=== PATIENT | male | born 1975 | race Caucasian/White ===

== ENCOUNTER 2022-01-19 20:34 | Observation (INO) | payer MEDICAID, SELFPAY ==
[2022-01-19 20:48] VITALS: BP 115/44; PULSE 69; RESP 17; TEMP 36.7; O2SAT 100; BMI 25.0
--- NOTE | 2022-01-19 20:56 | CT_ITS ---
PROCEDURE INFORMATION: Exam: CT Abdomen And Pelvis Without Contrast Exam date and time: 01/19/2022 9:21 PM Age: 46 years old Clinical indication: Abdominal pain; Localized; Left lower quadrant (llq); Additional info: Inguinal hernia pain left low quad. Visable buldge in skin at the site TECHNIQUE: Imaging protocol: Computed tomography of the abdomen and pelvis without contrast. Radiation optimization: All CT scans at this facility use at least one of these dose optimization techniques: automated exposure control; mA and/or kV adjustment per patient size (includes targeted exams where dose is matched to clinical indication); or iterative reconstruction. COMPARISON: No relevant prior studies available. FINDINGS: Liver: Normal. No mass. Gallbladder and bile ducts: Normal. No calcified stones. No ductal dilation. Pancreas: Normal. No ductal dilation. Spleen: Normal. No splenomegaly. Adrenal glands: Normal. No mass. Kidneys and ureters: Nonobstructing right renal calculus. Stomach and bowel: Unremarkable. No obstruction. No mucosal thickening. Appendix: Unremarkable appendix. Intraperitoneal space: Unremarkable. No free air. No significant fluid collection. Vasculature: The arteries demonstrate mild atherosclerotic disease. Lymph nodes: Unremarkable. No enlarged lymph nodes. Urinary bladder: Unremarkable as visualized. Reproductive: Unremarkable as visualized. Bones/joints: Unremarkable. No acute fracture. Soft tissues: Dilated segments of small bowel filled with fluid with a transition point at an incarcerated left inguinal hernia. Left inguinal hernia containing a short segment of small bowel. There is moderate edema associated with this. IMPRESSION: 1. Incarcerated left inguinal hernia causing small bowel obstruction. 2. Nonobstructing right renal calculus.
[2022-01-19 21:11] LABS: Microscopic, Urine URINE MICROSCOPIC (MICROSCOPIC)
[2022-01-19 21:20] LABS: Appearance,Urine CLEAR (Clear); Blood, Urine TRACE-I (Negative); Color,Urine YELLOW (Yellow); Glucose,Urine (UA) Negative (Negative); Ketones,Urine 1+ (Negative); Leukocyte Esterase,Urine Negative (Negative); Nitrate,Urine Negative (Negative); Protein,Urine 1+ (Negative); Specific Gravity, Urine >= 1.030 (1.005-1.030)
[2022-01-19 21:25] LABS: Bilirubin,Urine Negative (Negative)
[2022-01-19 21:26] LABS: Amorphous Sediment,Urine Trace /lpf; Mucus,Urine 1+ /lpf
--- NOTE | 2022-01-19 21:34 | PC.NURSE ---
Pt has been a difficult stick for IV cath or labs. 3 RN's have tried 7x all together without success. Pt refusing additional sticks at this time. aware.
--- NOTE | 2022-01-19 21:38 | PC.NURSE ---
Lab at bedside, will attempt direct stick for labs.
[2022-01-19 21:53] LABS: Basophils # 0.1 K/mm3 (0-0.2); Basophils % 0.4 % (0.1-2.0); Eosinophils # 0.2 K/mm3 (0.0-0.4); Eosinophils % 1.8 % (0.1-12.0); Hematocrit 42.5 % (42.0-52.0); Hemoglobin 13.7 g/dL (14.1-18.0); Lymphocytes # 1.9 K/mm3 (0.7-4.5); Lymphocytes % 15.1 % (10-50); Mean Corpuscular HGB Conc 32.1 g/dL (31.8-35.4); Mean Corpuscular Hemoglobin 30.6 pg (27.0-31.2); Mean Corpuscular Volume 95.3 fl (80-94); Mean Platelet Volume 7.4 fl (7.4-10.4); Monocytes # 0.7 K/mm3 (0.1-1.0); Monocytes % 5.3 % (1.7-9.3); Neutrophils # 9.7 K/mm3 (1.8-7.8); Neutrophils % 77.4 % (37.0-80.0); Platelet Count 433 K/mm3 (142-424); Red Blood Count 4.46 M/mm3 (4.60-6.20); Red Cell Distribution Width 14.8 % (11.5-17.5); White Blood Count 12.5 K/mm3 (4.8-10.8)
--- NOTE | 2022-01-19 21:56 | PC.NURSE ---
AWARE OF CT RESULTS.
--- NOTE | 2022-01-19 21:56 | PC.NURSE ---
Rounded on pt. Pt voiced no needs or complaints at this time.
[2022-01-19 21:57] VITALS: BP 140/92; PULSE 68; O2SAT 99
--- NOTE | 2022-01-19 21:59 | HMH.EDGENADL ---
Discharge Plan Disposition Patient Disposition: Admitted As Inpatient Chief Complaint: PAIN Clinical Impressions Clinical Impression: Incarcerated left inguinal hernia, Small bowel obstruction Discharge ED Provider: Bro Graf General Adult HPI General Chief complaint: PAIN Stated complaint: AO 01/18@1400 injured his kwame Time Seen by Provider: 01/19/22 21:59 Mode of Arrival: Wheelchair Source of Information: Patient, Significant Other and Medical Record Limitations: No Limitations Description of Symptoms (Recalled from ER Triage Doc. by RN): PT STATES HE HAS PAIN IN HIS LEFT GROIN THAT BEGAN TODAY AROUND 1600 AND HAS NOT RESOLVED. History of Present Illness HPI narrative: acute lt groin pain today which has progressed with nausea Onset (ago): hour(s) Location: abdomen Severity: severe Quality: sharp Consistency: constant Associated symptoms: denies other symptoms Treatments prior to arrival: none Related Data Home Medications Medication Instructions Recorded Confirmed No Known Home Medications 01/19/22 01/19/22 Allergies Allergy/AdvReac Type Severity Reaction Status Date / Time No Known Allergies Allergy Verified 01/19/22 20:54 PFSH PFSH Social History Smoking Status: Current every day smoker tobacco type: cigarettes packs per day: 1 alcohol intake: current substance use type: amphetamines current occupational status: employed Travel in the last 8 weeks: None caffeine: Yes ROS Obtained: Yes All systems reviewed & no additional complaints except as documented Constitutional Constitutional: Denies fever(s) Eyes Eyes: Denies loss of vision ENT Ears, Nose, Mouth, and Throat: Denies facial pain Cardiovascular Cardiovascular: Denies chest pain with activity Respiratory Respiratory: Denies shortness of breath Gastrointestinal Gastrointestingal: Reports as per HPI and abdominal pain Genitourinary Male Genitourinary: Denies hematuria and Denies scrotal swelling Musculoskeletal Musculoskeletal: Denies back pain Integumentary/Breasts Skin/Breast: Denies rash Neurologic Neurologic: Denies loss of vision Physical Exam General General appearance: alert Head Head exam: normocephalic Eye Eye exam: Present PERRL and EOMI ENT ENT exam: Present mucous membranes dry Neck Neck exam: Present trachea midline Respiratory Respiratory exam: Absent respiratory distress Cardiovascular Cardiovascular exam: Present regular rate; Absent systolic murmur Abdominal Exam Abdominal exam: Present soft exam: Present circumcised; Absent scrotal swelling Expanded Exam exam: Present inguinal hernia Extremities Exam Extremities exam: Present full ROM Neurological Exam Neurological exam: Present alert, oriented X3 and CN II-XII intact Psychiatric Psychiatric exam: Present normal affect Skin Skin exam: Present intact Medical Decision Making Medical Records Medical records reviewed: Yes I reviewed the patient's medical records. Mj Inquiry Pt receiving controlled substance: No Vital Signs: 01/19/22 20:48 01/19/22 21:57 01/19/22 23:17 Temperature 98.1 F Temperature Source Oral Pulse Rate 68 Pulse Rate [Left Radial] 69 Respiratory Rate 17 Blood Pressure 140/92 H Blood Pressure [Left Arm] 115/44 L Blood Pressure Mean [Left Arm] 67 Blood Pressure Source [Left Arm] Automatic Cuff Blood Pressure Position Blood Pressure Position [Left Arm] Sitting 02 Sat by Pulse Oximetry 100 99 Oxygen Delivery Method Room Air Room Air Room Air 01/19/22 23:17 Temperature 97.9 F Temperature Source Oral Pulse Rate 88 Pulse Rate [Left Radial] Respiratory Rate 16 Blood Pressure 97/82 L Blood Pressure [Left Arm] Blood Pressure Mean [Left Arm] Blood Pressure Source [Left Arm] Blood Pressure Position Sitting Blood Pressure Position [Left Arm] 02 Sat by Pulse Oximetry Oxygen Delivery Method Room Air
--- NOTE | 2022-01-19 21:59 | PC.NURSE ---
Dr. Graf s/w IRVINGAD
--- NOTE | 2022-01-19 22:00 | PC.NURSE ---
Dr. Hernandez paged
[2022-01-19 22:01] LABS: Alanine Aminotransferase 50 U/L (12-78); Albumin Level 4.5 g/dl (3.5-5.0); Albumin Level 4.6 g/dl (3.5-5.0); Albumin/Globulin Ratio 1.5 (1.1-1.8); Alkaline Phosphatase 97 U/L (38-126); Anion Gap 12.7 mEq/L (5-15); Aspartate Amino Transferase 57 U/L (17-59); Aspartate Amino Transferase 58 U/L (17-59); Bilirubin,Direct 0.5 mg/dl (0.0-0.4); Bilirubin,Indirect 1.6 mg/dL (0.0-0.9); Bilirubin,Total 2.1 mg/dl (0.2-1.3); Bilirubin,Total 2.2 mg/dl (0.2-1.3); Bilirubin,Unconjugated 1.6 mg/dL (0.0-1.1); Blood Urea Nitrogen 23 mg/dl (9-20); Calcium 9.5 mg/dl (8.4-10.2); Carbon Dioxide 25 mmol/L (22.0-30.0); Chloride 107 mmol/L (98-107); Creatinine Clearance Estimated 64 mL/min (50-200); Estimated Glomerular Filt Rate 55 ml/min (>60); GFR (African American) 66 ML/MIN (>60); Globulin 3.1 g/dL (1.3-3.2); Glucose 106 mg/dl (74-100); Potassium 4.7 mmoL/L (3.5-5.1); Sodium 140 mmol/L (136-145); Total Protein,Serum 7.6 g/dl (6.3-8.2); Total Protein,Serum 7.7 g/dl (6.3-8.2)
[2022-01-19 22:02] LABS: Lactic Acid 0.7 mmol/L (0.7-2.1)
--- NOTE | 2022-01-19 22:02 | PC.NURSE ---
speaking with Dr. Hernandez
[2022-01-19 22:06] LABS: C-Reactive Protein 4.4 mg/L (0-4)
--- NOTE | 2022-01-19 22:06 | PC.NURSE ---
COVID SWAB COLLECTED AND SENT TO LAB. PT AWARE THAT MD WILL BE PRESENT TO DISCUSS CT RESULTS. FAMILY AT BEDSIDE.
[2022-01-19 22:09] LABS: Coronavirus 19, PCR Not Detected (NotDetected); Influenza A, PCR Not Detected (NotDetected); Influenza B, PCR Not Detected (NotDetected)
--- NOTE | 2022-01-19 22:13 | PC.NURSE ---
Dr. Hernandez at BS
[2022-01-19 22:16] LABS: Erythrocyte Sedimentation Rate 14 mm/hr (0-15)
--- NOTE | 2022-01-19 22:20 | PC.NURSE ---
DR MALAVE AT BEDSIDE TO ATTEMPT INGUINAL HERNIA REDUCTION. FAMILY REMAINS AT BEDSIDE.
--- NOTE | 2022-01-19 22:42 | P.PN_ITS ---
[facility] Social History Smoking Status: Current every day smoker tobacco type: cigarettes packs per day: 1 alcohol intake: current substance use type: amphetamines current occupational status: employed Travel in the last 8 weeks: None caffeine: Yes [facility] Anesthesia Checklist Patient Identification Patient Identification: Arm Band and Verbal (Name & ) Structural Data Admitted From: Emergency Dept Planned Operative Procedure/s: Hernia repair Consent for Planned Operative Procedure(s) Verified: Yes NPO Status Verified Time NPO: 00:00 Airway Assessment C-Spine Mobility Assessed: Yes TMJ Mobility Assessed: Yes Dentition: Edentulous Neurological Assessment Level of Consciousness: Awake Hx Seizures: No Numbness or tingling in extremities: No Anesthesia Plan Anesthesia Risk discussed: Yes Anesthesia Plan: Verified ASA Class: II (II E) Anesthesia Type: General
--- NOTE | 2022-01-19 22:44 | EXP.GEN.HP ---
HPI HPI HPI: This is a 46-year-old gentleman who presented to the emergency department with increasing left groin pain. He had physical exam findings of incarcerated inguinal hernia later confirmed radiographically. Multiple attempts at reduction have been unsuccessful. [facility] Social History Smoking Status: Current every day smoker tobacco type: cigarettes packs per day: 1 alcohol intake: current substance use type: amphetamines current occupational status: employed Travel in the last 8 weeks: None caffeine: Yes Review of Systems Constitutional Constitutional: Denies anorexia Eyes Eyes: Reports system reviewed and no additional complaints, except as documented ENT Ears, Nose, Mouth, and Throat: Reports system reviewed and no additional complaints, except as documented *Cardiovascular Cardiovascular: Reports system reviewed and no additional complaints, except as documented *Respiratory Respiratory: Reports system reviewed and no additional complaints, except as documented *Gastrointestinal Gastrointestinal: Reports abdominal pain *Genitourinary Genitourinary: Reports system reviewed and no additional complaints, except as documented *Musculoskeletal Musculoskeletal: Reports system reviewed and no additional complaints, except as documented Integumentary/Breasts Skin/Breast: Reports system reviewed and no additional complaints, except as documented *Neurologic Neurologic: Reports system reviewed and no additional complaints, except as documented Psychiatric Psychiatric: Reports system reviewed and no additional complaints, except as documented Endocrine Endocrine: Reports system reviewed and no additional complaints, except as documented Hematologic/Lymphatic Hematologic/Lymphatic: Reports system reviewed and no additional complaints, except as documented Allergic/Immunologic Allergic/Immunologic: Reports system reviewed and no additional complaints, except as documented Meds Home Medications and Allergies Home Medications Medication Instructions Recorded Confirmed Type No Known Home Medications 01/19/22 01/19/22 History New Prescriptions to Start Prescriptions: Allergies Allergy/AdvReac Type Severity Reaction Status Date / Time No Known Allergies Allergy Verified 01/19/22 20:54 Exam Data for Last 24 hours Vital signs and Labs for Last 24 Hours: Temp Pulse Resp BP Pulse Ox 98.1 F 68 17 140/92 H 99 01/19/22 20:48 01/19/22 21:57 01/19/22 20:48 01/19/22 21:57 01/19/22 21:57 Laboratory Results - last 24 hr 01/19/22 21:01: Urine Color Yellow, Urine Appearance Clear, Urine pH 6.0, Ur Specific [place] >= 1.030, Urine Protein 1+, Urine Glucose (UA) Negative, Urine Ketones 1+, Urine Blood Trace-i, Urine Nitrate Negative, Urine Bilirubin Negative, Urine Urobilinogen 1.0, Ur Leukocyte Esterase Negative, Urine WBC 3-5, Amorphous Sediment Trace, Urine Mucus 1+ 01/19/22 21:42: WBC 12.5 H, RBC 4.46 L, Hgb 13.7 L, Hct 42.5, MCV 95.3 H, MCH 30.6, MCHC 32.1, RDW 14.8, Plt Count 433 H, MPV 7.4, Neut % (Auto) 77.4, Lymph % (Auto) 15.1, [place] % (Auto) 5.3, Eos % (Auto) 1.8, Baso % (Auto) 0.4, Neut # (Auto) 9.7 H, Lymph # (Auto) 1.9, [place] # (Auto) 0.7, Eos # (Auto) 0.2, Baso # (Auto) 0.1, ESR 14 01/19/22 21:42: Sodium 140, Potassium 4.7, Chloride 107, Carbon Dioxide 25, Anion Gap 12.7, BUN 23 H, Creatinine 1.40 H, Estimated Creat Clear 64, Estimated GFR 55 L, Est GFR ( Amer) 66, Glucose 106 H, Calcium 9.5, Total Bilirubin 2.2 H, AST 57, ALT 50, Alkaline Phosphatase 97, C-Reactive Protein 4.4 H, Total Protein 7.6, Albumin 4.5, Globulin 3.1, Albumin/Globulin Ratio 1.5 01/19/22 21:42: Total Bilirubin 2.1 H, Direct Bilirubin 0.5 H, Conjugated Bilirubin 0.0, Indirect Bilirubin 1.6 H, Unconjugated Bilirubin 1.6 H, AST 58, ALT 50, Alkaline Phosphatase 97, Total Protein 7.7, Albumin 4.6 01/19/22 21:42: Lactate 0.7 01/19/22 22:02: SARS-CoV-2 (PCR) Not d
--- NOTE | 2022-01-19 22:55 | PC.NURSE ---
PATIENT AWARE OF PLAN FOR SURG. DR. MALAVE DISCUSSED WITH PATIENT PLAN FOR HERNIA REPAIR WITH POSSIBLE SMALL BOWEL RESECTION. PT VERBALIZES UNDERSTANDING AND DENIES QUESTIONS AT THIS TIME.
[2022-01-19 22:59] LABS: Activated Partial Thrombo Time 26.8 seconds (22.8-30.6); INR 0.93 (0.9-1.1); Prothrombin Time 10.6 seconds (10.1-12.5)
[2022-01-19 23:17] VITALS: BP 97/82; PULSE 88; RESP 16; TEMP 36.6; O2SAT 98
[2022-01-19 23:53] VITALS: BMI 24.0
[2022-01-20] VITALS (21 sets, daily range): BP systolic 90–141; BP diastolic 60–89; PULSE 66–83; RESP 13–24; TEMP 36.2–43; O2SAT 94–100
--- NOTE | 2022-01-20 00:11 | EXP.OP.NOTE ---
Date of procedure: 01/20/22 Pre-op Diagnosis:: Incarcerated left inguinal hernia with small bowel obstruction Post-op Diagnosis:: Same Procedure performed:: Open left inguinal hernia repair Surgeon:: Husam Hernandez MD EMERGENCY MANAGEMENT PROGRAM SPECIALIST:: Alla Darling Anesthesia: GETA Estimated blood loss (mL): 15 Operative findings:: Obliteration of canal contents and overlying external aponeurosis Retraction of hernia sac leading to inability to safely ascertain bowel viability with certainty (without tremendous extension of operative time) Incarcerated preperitoneal fat appeared viable. PerFix plug secured in defect Operative note:: After informed consent was obtained the patient was taken to the operating room and placed in the supine position. General anesthesia was induced and his lower abdomen and groin/scrotum were prepped and draped in a sterile fashion. After infiltration local anesthetic an oblique left groin incision was made. Dissection was taken through Shoaib's fascia. The external aponeurosis was violated by incarcerated contents. Individual layers with regard to incarcerated preperitoneal fat, hernia sac, external aponeurosis, etc. were not discernible. Careful dissection was taken along the margin of the incarceration posteriorly. Metzenbaum scissors were utilized to free the hernia sac at the level of the internal ring. With the hernia decompressed careful dissection was utilized to free and incarcerated portion of omentum. No definitive areas of ischemia were noted. The hernia sac had retracted to the point that further dissection was deemed unwarranted/unsafe. Therefore, the hernia sac was not opened and bowel viability could not be ascertained with certainty. Evaluation of the defect and surrounding tissue revealed significant anomalies and distortion throughout the canal. The decision was made to proceed with placement of a PerFix plug within the defect. The large PerFix plug was secured with interrupted Ethibond. Appropriate tissue for securing the PerFix overlay was not available; therefore, this was not placed. The tissue margins overlying the plug were then reapproximated with interrupted Ethibond. Shoaib's fascia was closed with running Vicryl suture and skin was then closed with 3-0 Monocryl STRATAFIX. Dressings were applied and patient was transferred to recovery in stable condition.. Condition: stable Disposition: PACU Specimens:: None Complications:: No immediate
--- NOTE | 2022-01-20 00:27 | EXP.ANES.I ---
[facility] Anesthesia Record Part I Anesthesia Record I Intake, IV Amount: 600 Estimated blood loss (mL): 10 Urine output (mL): 0 Blood Pressure: 126/80 SaO2: 94 Pulse Rate: 76 Respiratory Rate: 13 Temperature: 97.2 F Patient is:: Drowsy and Oral/Nasal airway Stable to PACU at:: 00:20
--- NOTE | 2022-01-20 01:10 | PC.NURSE ---
PT ARRIVED BY BED TO THE FLOOR AT THIS TIME
--- NOTE | 2022-01-20 01:19 | SUR.PHASEI ---
LATE ENTRY [id number] called and gave detailed report to jeannette Solis/neurological surgeon [id number] transported via bed to med/surg room. vital signs stable. denies pain. left in stable condition with jeannette Solis/neurological surgeon at bedside.
--- NOTE | 2022-01-20 05:34 | PC.NURSE ---
PT IS ALERT AND ORIENTED X4. LUNG SOUNDS ARE DIMINISHED BUT PT IS TOLERATING ROOM AIR WELL. PT HAS NOT C/O PAIN SINCE COMIN GTO THE FLOOR FROM PACU. PT STATES HE IS NOT IN PAIN BUT HE IS TENDER. PT HAS AMBULATED IN THE ROOM AND IN THE [facility] SINCE SURGERY. PT VOICES THAT HE WANTS TO EAT REAL FOOD. PT EDUCATED ON CLEAR DIET AND HOSPITAL'S NON-SMOKING POLICY. VSS. PT HAS HAD NO C/O N/V/D. SURGICAL INCISION IS C/D/I.
--- NOTE | 2022-01-20 08:00 | PC.NURSE ---
Pt is wanting to leave AMA. I talked him into at least staying to try and get a hold of Dr. MALAVE. I paged Dr Malave.
--- NOTE | 2022-01-20 08:20 | PC.NURSE ---
Pt wanted to make sure that all of his tools were still in the truck while hes waiting for D/C. I signed a paper stated that he understands the issue and why he shouldn't leave the floor. He stated that he understands.
--- NOTE | 2022-01-20 08:23 | EXP.SURG.PN ---
Subjective Patient reports: no new complaints and feels better Narrative: patient states that he feels great and must leave due to work Exam Data for Last 24 hours Vital signs and Labs for Last 24 Hours: Temp Pulse Resp BP Pulse Ox 98.1 F 73 16 115/69 98 01/20/22 07:00 01/20/22 07:00 01/20/22 07:00 01/20/22 07:00 01/20/22 07:00 Laboratory Results - last 24 hr 01/19/22 21:01: Urine Color Yellow, Urine Appearance Clear, Urine pH 6.0, Ur Specific [place] >= 1.030, Urine Protein 1+, Urine Glucose (UA) Negative, Urine Ketones 1+, Urine Blood Trace-i, Urine Nitrate Negative, Urine Bilirubin Negative, Urine Urobilinogen 1.0, Ur Leukocyte Esterase Negative, Urine WBC 3-5, Amorphous Sediment Trace, Urine Mucus 1+ 01/19/22 21:42: WBC 12.5 H, RBC 4.46 L, Hgb 13.7 L, Hct 42.5, MCV 95.3 H, MCH 30.6, MCHC 32.1, RDW 14.8, Plt Count 433 H, MPV 7.4, Neut % (Auto) 77.4, Lymph % (Auto) 15.1, [place] % (Auto) 5.3, Eos % (Auto) 1.8, Baso % (Auto) 0.4, Neut # (Auto) 9.7 H, Lymph # (Auto) 1.9, [place] # (Auto) 0.7, Eos # (Auto) 0.2, Baso # (Auto) 0.1, ESR 14 01/19/22 21:42: Sodium 140, Potassium 4.7, Chloride 107, Carbon Dioxide 25, Anion Gap 12.7, BUN 23 H, Creatinine 1.40 H, Estimated Creat Clear 64, Estimated GFR 55 L, Est GFR ( Amer) 66, Glucose 106 H, Calcium 9.5, Total Bilirubin 2.2 H, AST 57, ALT 50, Alkaline Phosphatase 97, C-Reactive Protein 4.4 H, Total Protein 7.6, Albumin 4.5, Globulin 3.1, Albumin/Globulin Ratio 1.5 01/19/22 21:42: Total Bilirubin 2.1 H, Direct Bilirubin 0.5 H, Conjugated Bilirubin 0.0, Indirect Bilirubin 1.6 H, Unconjugated Bilirubin 1.6 H, AST 58, ALT 50, Alkaline Phosphatase 97, Total Protein 7.7, Albumin 4.6 01/19/22 21:42: Lactate 0.7 01/19/22 21:42: PT 10.6, INR 0.93, APTT 26.8 01/19/22 22:02: SARS-CoV-2 (PCR) Not detected, Influenza A Untype (PCR) Not detected, Influenza Type B (PCR) Not detected I & O for Last 24 hours: Intake & Output 01/17/22 01/18/22 01/19/22 01/20/22 11:59 11:59 11:59 11:59 Intake Total 600 / 600 Output Total 0 / 0 Balance 600 / 600 Weight 144 lb 8 oz Constitutional Comments: Direct conversation via phone. Patient unwilling to wait for in person examination. *Routine HEENT Exam Comments: See above *Routine Respiratory Exam Comments: No obvious respiratory distress noted via direct phone conversation *Routine Cardiovascular Exam Comments: Note vitals Progress Note: A&P Assessment and plan (1) Incarcerated left inguinal hernia: Status: Acute (2) Small bowel obstruction: Status: Acute Assessment and Plan Assessment and Plan for All Diagnoses:: The patient is currently stable and feels much much better . 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 Ideally, the patient would remain hospitalized throughout the day for closer observation with regard to undetermined/possible small bowel ischemia. He states that he will return immediately if he develops any symptoms. Plan is for discharge with very close outpatient follow-up. Phone follow-up within 24 hours will also be arranged.
--- NOTE | 2022-01-20 11:05 | EXP.DC.SUM ---
General Admission date:: 01/19/22 Discharge date: 01/20/22 HPI HPI HPI: This is a 46-year-old gentleman who presented to the emergency department with increasing left groin pain. He had physical exam findings of incarcerated inguinal hernia later confirmed radiographically. Multiple attempts at reduction have been unsuccessful. Hospital Course Hospital Course Hospital Course: The patient underwent operative repair of his incarcerated hernia. Please see operative report for detail. Postoperatively, he convalesced well and requested urgent discharge on the morning following his operative intervention. Exam Data for Last 24 hours Vital signs and Labs for Last 24 Hours: Temp Pulse Resp BP Pulse Ox 97.8 F 69 24 127/76 99 01/20/22 08:00 01/20/22 08:00 01/20/22 08:00 01/20/22 08:00 01/20/22 08:00 Laboratory Results - last 24 hr 01/19/22 21:01: Urine Color Yellow, Urine Appearance Clear, Urine pH 6.0, Ur Specific [place] >= 1.030, Urine Protein 1+, Urine Glucose (UA) Negative, Urine Ketones 1+, Urine Blood Trace-i, Urine Nitrate Negative, Urine Bilirubin Negative, Urine Urobilinogen 1.0, Ur Leukocyte Esterase Negative, Urine WBC 3-5, Amorphous Sediment Trace, Urine Mucus 1+ 01/19/22 21:42: WBC 12.5 H, RBC 4.46 L, Hgb 13.7 L, Hct 42.5, MCV 95.3 H, MCH 30.6, MCHC 32.1, RDW 14.8, Plt Count 433 H, MPV 7.4, Neut % (Auto) 77.4, Lymph % (Auto) 15.1, [place] % (Auto) 5.3, Eos % (Auto) 1.8, Baso % (Auto) 0.4, Neut # (Auto) 9.7 H, Lymph # (Auto) 1.9, [place] # (Auto) 0.7, Eos # (Auto) 0.2, Baso # (Auto) 0.1, ESR 14 01/19/22 21:42: Sodium 140, Potassium 4.7, Chloride 107, Carbon Dioxide 25, Anion Gap 12.7, BUN 23 H, Creatinine 1.40 H, Estimated Creat Clear 64, Estimated GFR 55 L, Est GFR ( Amer) 66, Glucose 106 H, Calcium 9.5, Total Bilirubin 2.2 H, AST 57, ALT 50, Alkaline Phosphatase 97, C-Reactive Protein 4.4 H, Total Protein 7.6, Albumin 4.5, Globulin 3.1, Albumin/Globulin Ratio 1.5 01/19/22 21:42: Total Bilirubin 2.1 H, Direct Bilirubin 0.5 H, Conjugated Bilirubin 0.0, Indirect Bilirubin 1.6 H, Unconjugated Bilirubin 1.6 H, AST 58, ALT 50, Alkaline Phosphatase 97, Total Protein 7.7, Albumin 4.6 01/19/22 21:42: Lactate 0.7 01/19/22 21:42: PT 10.6, INR 0.93, APTT 26.8 01/19/22 22:02: SARS-CoV-2 (PCR) Not detected, Influenza A Untype (PCR) Not detected, Influenza Type B (PCR) Not detected I & O for Last 24 hours: Intake & Output 01/17/22 01/18/22 01/19/22 01/20/22 11:59 11:59 11:59 11:59 Intake Total 1320 / 1320 Output Total 0 / 0 Balance 1320 / 1320 Weight 144 lb 8 oz Constitutional Comments: Direct conversation via phone. Patient unwilling to wait for in person examination prior to discharge. *Routine HEENT Exam Comments: See above *Routine Neck Exam Comments: See above Routine Chest/Breast/Axilla Exam Comments: See above *Routine Respiratory Exam Comments: No obvious respiratory distress noted via direct phone conversation *Routine Cardiovascular Exam Comments: Note vitals *Routine Abdominal Exam Comments: See above. No periincisional erythema per nursing. *Routine Rectal Exam Patient deferred: visual exam *Routine Exam Patient deferred: penile exam *Routine Extremities Exam Comments: See above Routine Back/Spine/Pelvis Exam Comments: See above *Routine Skin Exam Comments: See above *Routine Neurological Exam Neurological: Present alert Comments: Via phone conversation interaction Routine Psychiatric Exam Psychiatric: Present normal thought process Comments: Via phone conversation interaction Results Data Completed and Pending Labs on day of discharge: Labs from last 24 hours 01/19/22 01/19/22 01/19/22 22:02 21:42 21:42 WBC RBC Hgb Hct MCV MCH MCHC RDW Plt Count MPV Neut % (Auto) Lymph % (Auto) [place] % (Auto) Eos % (Auto) Baso % (Auto) Neut # (Auto) Lymph # (Auto) [place] # (Auto) Eos # (Auto)
--- NOTE | 2022-01-22 07:09 | P.PNANES_ITS ---
[facility] Anesthesia Record Part II Anesthesia Record Part II Discharge Time: 01:05 Destination: Second Floor PACU nurse assessment reviewed?: Yes Patient Condition:: Good Anesthesia Complications:: None Swallowing reflex intact?: Yes Cyanosis?: No Blood Pressure: 141/78 Pulse Rate: 78 Temperature: 97.3 F Mental Status: Alert & Oriented Pain level:: 0 Nausea and/or vomitting:: None Intake, IV Amount: 0
[2022-01-22 07:10] VITALS: BP 141/78; PULSE 78; TEMP 36.3
--- NOTE | 2022-01-24 13:59 | CARE MANAGER ---
Contacted patient related to hospital discharge. Patient's states he is overdoing it and that the area is swollen and has a little redness. He does not have a follow up appointment with surgeon until later in January. We discussed monitoring it closely and contacting the surgeon to be seen sooner if it continues to progress. Denies any questions or concerns. MANDEEP Jasso
== END 2022-01-20 08:50 | disposition home or self-care (01) ==
LOC: ER 21:26 → SDC 23:22 → 2ND 23:27
PROVIDERS: Admitting Provider Surgery; Emergency Provider Emergency Medicine; Visit Provider Surgery
PROC: (CPT 49507; principal; 2022-01-19 23:30)
DX: K40.30 Unilateral inguinal hernia, with obstruction, without gangrene, not specified as recurrent (principal); F17.210 Nicotine dependence, cigarettes, uncomplicated; Z20.822 Contact with and (suspected) exposure to COVID-19
CPT/HCPCS: 49507; 74176; 80053; 80076; 81001; 83605; 85025; 85610; 85651; 85730; 86140; 99285; C9803; G0378; J0131; J2405; U0003; U0005